=== PATIENT | female | born 1980 | race Caucasian/White ===

== ENCOUNTER 2021-04-05 12:34 | Outpatient (CLI) | payer BC ==
[2021-04-05] MEDS ORDERED: INSU100I13 SC (12:56)
[2021-04-05] MEDS ORDERED: FENO145T19 PO (12:56)
[2021-04-05] MEDS ORDERED: LISI-170 PO (12:56)
[2021-04-05] MEDS ORDERED: GLIP10TA13 PO (12:56)
[2021-04-05] MEDS ORDERED: METF500T17 PO (12:56)
[2021-04-05] MEDS ORDERED: SIMV40TA20 PO (12:56)
[2021-04-05 13:26] LABS: BASOPHILS % (AUTO) 1 % (0-1); EOSINOPHILS % (AUTO) 2 % (1-7); LYMPHOCYTES % (AUTO) 37 % (22-44); MEAN CORPUSCULAR HEMOGLOBIN 30.2 pg (27.0-34.8); MEAN CORPUSCULAR HGB CONC 34.5 g/dL (32.4-35.8); MONOCYTES % (AUTO) 5 % (2-9); NEUTROPHILS % (AUTO) 55 % (42-75); PLATELET COUNT 344 x10^3/uL (130-400); RED BLOOD COUNT 5.03 x10^6/uL (3.82-5.3); RED CELL DISTRIBUTION WIDTH 12.7 % (9.6-15.2)
[2021-04-05 13:37] LABS: ALBUMIN 3.8 g/dL (3.4-5.0); ANION GAP 6 mmol/L (5-15); CALCIUM 9.5 mg/dL (8.5-10.1); CHLORIDE 106 mmol/L (98-107)
[2021-04-05 13:43] LABS: MICROSCOPIC INDICATED
[2021-04-05 13:43] LABS: ALANINE AMINOTRANSFERASE 28 U/L (12-78); ALKALINE PHOSPHATASE 52 U/L (45-117); BILIRUBIN,TOTAL 0.9 mg/dL (0.2-1.0); CREATININE 0.81 mg/dL (0.55-1.02); TOTAL PROTEIN 7.9 g/dL (6.4-8.2)
== END 2021-04-05 23:59 | disposition home or self-care (01) ==
LOC: STAR 12:34
PROVIDERS: ATTEND Obstetrics & Gynecology Gynecology
DX: Z01.818 Encounter for other preprocedural examination (principal); N90.89 Other specified noninflammatory disorders of vulva and perineum; N89.8 Other specified noninflammatory disorders of vagina; N93.9 Abnormal uterine and vaginal bleeding, unspecified
CPT/HCPCS: 36415; 71046; 80053; 81001; 84702; 85025; 87086; 93005

== ENCOUNTER 2021-04-11 10:22 | Day surgery (SDC) | payer BC ==
[~2021-04-11] VITALS: Ht 172.7 cm; Wt 115.0 kg
[~2021-04-11 10:22] MED LIST: FENO145T19 PO; GLIP10TA13 PO; INSU100I13 SC; LISI-170 PO; METF500T17 PO; SIMV40TA20 PO
[2021-04-11 10:47] VITALS: BP 143/92
[2021-04-11] MEDS ORDERED: CHLORHEXIDINE 15 ML UDC PO ONE (11:00)
[2021-04-11] MEDS ORDERED: LACTATED RINGERS 1,000 ML IV SCH (11:00)
[2021-04-11 11:15] LABS: HCG UR SG 1.023 (1.003-1.030)
[2021-04-11] MEDS ORDERED: BUPIVACAINE/PF 0.25% ONE (11:30)
[2021-04-11] MEDS ORDERED: EPINEPHRINE 1 MG/ML, 1ML ONE (11:31)
[2021-04-11] MEDS ORDERED: LIDOCAINE-MPF 2% ,5ML ONE (11:38)
[2021-04-11] MEDS ORDERED: PROPOFOL 10 MG/ML, 20ML ONE (11:38)
[2021-04-11] MEDS ORDERED: ONDANSETRON 2MG/ML, 2ML ONE (12:01)
[2021-04-11] MEDS ORDERED: DEXAMETHASONE 4 MG/ML, 1ML ONE (12:01)
[2021-04-11] MEDS ORDERED: FENTANYL PF 100 MCG/2ML ONE (12:09)
[2021-04-11] MEDS ORDERED: FENTANYL PF 100 MCG/2ML IV PRN (12:30)
[2021-04-11] MEDS ORDERED: morphine SULFATE 10 MG/ML, 1ML IVPush PRN (12:30)
[2021-04-11] MEDS ORDERED: ACETAMINOPHEN 325 MG TABLET PO PRN (12:30)
[2021-04-11] MEDS ORDERED: PROMETHAZINE 25 MG/ML, 1ML IVPush PRN (12:30)
[2021-04-11] MEDS ORDERED: HYDROcodone/APAP 7.5-325MG/15ML UDC PO PRN (12:30)
[2021-04-11] MEDS ORDERED: HYDROcodone/APAP 7.5-325MG/15ML UDC ONE (13:21)
== END 2021-04-11 14:30 | disposition home or self-care (01) ==
LOC: OUT 10:22
PROVIDERS: ATTEND Obstetrics & Gynecology Gynecology
DX: N93.9 Abnormal uterine and vaginal bleeding, unspecified (principal); N84.0 Polyp of corpus uteri; N76.2 Acute vulvitis; L29.3 Anogenital pruritus, unspecified; I10 Essential (primary) hypertension; E11.9 Type 2 diabetes mellitus without complications; E66.9 Obesity, unspecified; Z68.38 Body mass index [BMI] 38.0-38.9, adult; Z79.84 Long term (current) use of oral hypoglycemic drugs; Z79.899 Other long term (current) drug therapy; Z82.49 Family history of ischemic heart disease and other diseases of the circulatory system; Z83.42 Family history of familial hypercholesterolemia
CPT/HCPCS: 36415; 56605; 57100; 58558; 81025; 82962; 86850; 86900; 88305; J1100; J2405; J2704; J3010; J7120; J0171